=== PATIENT | female | born 1985 | race Caucasian/White ===

== ENCOUNTER → 2021-03-13 | Outpatient (CLI) | payer OTHER ==
--- NOTE | 2021-03-13 15:36 | REP ---
INDICATION: LUMBAGO WITH SCIATICA, LEFT SIDE. COMPARISON: None. TECHNIQUE: Plain film study includes AP lateral and obliques. FINDINGS: No evidence of fracture or malalignment. Vertebral heights and disc heights appear overall preserved. No evidence of significant foraminal stenosis. IMPRESSION: Unremarkable plain film study. Consider MRI if symptoms persist. <Electronically signed by Abdirahman Mcpherson > 03/13/21 [id number]
== END ==
LOC: M WUC 15:16
PROVIDERS: ATTEND Physician Assistant
DX: M54.42 Lumbago with sciatica, left side (principal)